=== PATIENT | male | born 1960 | race American Indian/Alaskan Native ===

== ENCOUNTER 2020-09-27 22:30 | Inpatient (IN) | payer MEDICAID ==
[2020-09-27] MEDS ORDERED: ACETAMINOPHEN 325 MG TAB ONE (23:52)
[2020-09-28] MEDS ORDERED: ACETAMINOPHEN 325 MG TAB PO ONE (00:03)
[2020-09-28] MEDS ORDERED: ASPIRIN 325 MG TAB PO ONE (00:03)
--- NOTE | 2020-09-28 00:31 | XRay Report ---
CHEST 2 VIEWS INDICATION / CLINICAL INFORMATION: CP, SOB h/o PE. Chest pain. FINDINGS: SUPPORT DEVICES: None. HEART / MEDIASTINUM: No significant abnormality. LUNGS / PLEURA: No significant pulmonary or pleural abnormality. No pneumothorax. ADDITIONAL FINDINGS: No significant additional findings. IMPRESSION: 1. No acute findings. Signer Name: Rufus Finnegan MD Signed: 09/28/2020 12:26 AM Workstation Name: [id number]
[2020-09-28 00:45] LABS: Basophils % (Auto) 0.2 % (0.0-1.8); Hematocrit 35.2 % (35.5-45.6); Hemoglobin 11.6 gm/dl (11.8-15.2); Lymphocytes # (Auto) 1.3 K/mm3 (1.2-5.4); Lymphocytes % (Auto) 7.8 % (13.4-35.0); Mean Corpuscular HGB Conc 33 % (32-34); Mean Corpuscular Volume 93 fl (84-94); Monocytes # (Auto) 2.3 K/mm3 (0.0-0.8); Monocytes % (Auto) 13.9 % (0.0-7.3); Platelet Count 206 K/mm3 (140-440); Red Blood Count 3.79 M/mm3 (3.65-5.03); Red Cell Distribution Width 14.9 % (13.2-15.2)
[2020-09-28 01:10] LABS: Alanine Aminotransferase 10 units/L (7-56); Albumin 3.9 g/dL (3.9-5); BUN/Creatinine Ratio 13; Blood Urea Nitrogen 14 mg/dL (9-20); Hemolysis Index 16
[2020-09-28 01:38] LABS: Chol/HDL Ratio 2.75 %; HDL Cholesterol 60 mg/dL (40-59); LDL Cholesterol,Direct 101 mg/dL (50-130)
[2020-09-28] MEDS ORDERED: MORPHINE 4 MG/1 ML INJ IV ONE (01:54)
[2020-09-28] MEDS ORDERED: NITROGLYCERIN 0.4 MG TAB SUBL SL PRN ×2 (01:54→05:12)
[2020-09-28] MEDS ORDERED: HEPARIN 10,000 UNITS/10 ML VIAL IV ONE (01:54)
[2020-09-28] MEDS ORDERED: SODIUM CHLORIDE 0.9% 500 ML 500 ML IV ONE (01:54)
[2020-09-28] MEDS ORDERED: HEPARIN 10,000 UNITS/10 ML VIAL IV PRN (01:54)
--- NOTE | 2020-09-28 01:57 | Emergency Department Report ---
ED Chest Pain HPI - General Chief Complaint: Chest Pain Stated Complaint: CHEST PAIN,RT ANKLE & KNEE PAIN PUI?: No Time Seen by Provider: 09/28/20 01:43 Source: patient, EMS ( EMS documentation not available at time of chart dictation ), RN notes reviewed Mode of arrival: Stretcher Limitations: No Limitations - History of Present Illness Initial Comments: The patient is a 60-year-old gentleman. He is not known to myself previously. He reports a history of heart disease, with multiple heart attacks, "blood clots", last diagnosed 6 years ago, off anticoagulation for 2 to 3 years, history of marijuana use, and polyarthritis and gout. The patient presents to the ER with multiple complaints today. His first complaint is acute chest pain. The pain is central. It does not radiate anywhere. It is constant. Does not have exacerbating relieving factors. The patient denies vomiting, diaphoresis and shortness of breath. He feels that the sensation of pressure today is very similar to his prior episode of pulmonary embolism a few years ago. He also complains of nontraumatic bilateral ankle pain, right greater than left, and polyarthritis. No fever. No loss of taste or smell. No abdominal pain. No hematemesis of bright red blood per rectum. He reports a distant history of gout. He reports using cannabis to help assuage his symptoms. He denies Covid symptomatology. He does not believe he is taking aspirin recently. He has not taken erectile dysfunction medication recently. In the past, he has been admitted to [place], and [facility]. MD Complaint: chest pain -: Gradual, hour(s) Pain Location: substernal, left chest Pain Radiation: none Severity: moderate Severity scale (0 -10): 10 Quality: aching, pressure Consistency: constant Improves With: other (Chest pain has no exacerbating or relieving factors. Extremity pain increases with palpation and range of motion. It decreases with rest. ) Other Symptoms: other (Polyarthritis). denies: fever, syncope, rash, acid taste in mouth, leg swelling, palpitations, burping Treatments Prior to Arrival: none Aspirin use within the Past 7 Days: (0) No - Related Data Allergies Allergy/AdvReac Type Severity Reaction Status Date / Time No Known Allergies Allergy Unverified 09/27/20 23:02 Heart Score - HEART Score History: Slightly suspicious EKG: Non-specific Age: 45-65 Risk factors: > 3 risk factors or hx of atherosclerotic disease Troponin: 1-3x normal limit HEART Score: 5 - EKG Read Time Time EKG Completed: 23:27 EKG Read Time: 23:31 - Critical Actions Critical Actions: 4-6 pts:12-16.6% risk of adverse cardiac event. Should be admitted ED Review of Systems ROS: Stated complaint: CHEST PAIN,RT ANKLE & KNEE PAIN Other details as noted in HPI Constitutional: malaise. denies: fever Eyes: denies: eye discharge ENT: denies: epistaxis Respiratory: denies: wheezing Cardiovascular: chest pain Gastrointestinal: abdominal pain. denies: hematemesis, melena, hematochezia Musculoskeletal: back pain, arthralgia, myalgia Neurological: denies: weakness ED Past Medical Hx - Past Medical History Hx Hypertension: Yes Hx Heart Attack/AMI: Yes Hx Renal Disease: Yes Additional medical history: gout - Surgical History Past Surgical History?: No - Social History Smoking Status: Never Smoker ED Physical Exam - General Limitations: Physical Limitation General appearance: alert, in no apparent distress - Head Head exam: Present: atraumatic, normocephalic - Eye Eye exam: Present: normal appearance, EOMI. Absent: nystagmus - ENT ENT exam: Present: normal exam, normal orophraynx, mucous membranes moist, normal external ear exam - Neck Neck exam: Present: normal inspection, full ROM. Absent: tenderness, meningismus - Respiratory Respiratory exam: Present: normal lung sounds bilaterally. Absent: respiratory distress, wheezes, rales, rhonchi, stridor, decreased breath sounds - Cardiovascular Cardiovascular Exam: Present: regular rate, normal rhythm, normal heart sounds. Absent: bradycardia, tachycardia, irregular rhythm, systolic murmur, diastolic murmur, rubs, gallop - GI/Abdominal GI/Abdominal exam: Present: soft. Absent: distended, tenderness, guarding, rebound, rigid, pulsatile mass - Rectal Rectal exam: Present: deferred - Extremities Exam Extremities exam: Present: tenderness (There is right ankle tenderness. There is right ankle warmth and redness. Range of motion is intact in the right ankle.), other (2+ pulses noted in the bilateral upper and lower extremities. There is no palpable cord. negative Homans sign. Muscular compartments are soft. The pelvis is stable.). Absent: pedal edema, calf tenderness - Back Exam Back exam: Present: normal inspection. Absent: tenderness, CVA tenderness (R), CVA tenderness (L), paraspinal tenderness, vertebral tenderness - Neurological Exam Neurological exam: Present: alert, other (No facial droop. Tongue midline. Extraocular movements intact bilaterally. Facial sensation intact to light touch in V1, V2, V3 distribution bilaterally. 5 and a 5 strength in 4 extremities. Sensation intact to light touch in 4 extremities.). Absent: motor sensory deficit - Psychiatric Psychiatric exam: Present: normal affect, normal mood - Skin Skin exam: Present: warm, dry, intact, normal color. Absent: rash ED Course Vital Signs 09/27/20 09/28/20 09/28/20 23:35 00:05 01:57 Temperature 101.4 F H 98.5 F Pulse Rate 76 Respiratory 18 18 Rate Blood Pressure 157/86 Blood Pressure [Left] O2 Sat by Pulse 98 Oximetry 09/28/20 01:59 Temperature Pulse Rate 61 Respiratory Rate Blood Pressure Blood Pressure 173/86 [Left] O2 Sat by Pulse 98 Oximetry - Reevaluation(s) Reevaluation #1: 09/28/20 02:55 Differential diagnosis, including but not limited to: Gouty arthritis, polyarthritis, GERD, gastritis, hiatal hernia, pneumonia, acute coronary syndrome, pulmonary embolism, pericarditis, myocarditis Assessment and plan: 60-year-old gentleman with chest pain and polyarthritis. In terms of his chest pain, his EKG is nonspecific, he is moderate risk for major adverse cardiac event as per heart score, troponin elevated, CT scan of the chest ordered and pending. He indicates no contraindications in terms of systemic anticoagulation. Aspirin, nitroglycerin, morphine ordered, as well as unfractionated heparin. Admit for presumed NSTEMI. Patient amenable to this plan of care. In terms of his arthritic pain, the majority of his pain appears to be in his right ankle. He does have range of motion, and there is redness and warmth. He reports a history of gout. I favor gout clinically over septic joint, as he d enies intravenous drug use, and does have some range of motion over the right ankle. Given that we are starting him on systemic anticoagulation, we will withhold steroids at this time. We will treat him with morphine for his pain. He has also defervesced with Tylenol/acetaminophen. Hospital physician, Dr. Fofana to admit to [facility] 09/28/20 04:18 Medical records from [place] reviewed patient has a documented history of gout.. He has been admitted to [place] for gout. His CT scan of the chest is negative for acute findings. Patient has received antibiotics in the past empirically for foot cellulitis versus gout. He does have some dorsal foot erythema and redness. I suspect that his fever and leukocytosis are likely secondary to gouty flare. However we will cover empirically with antibiotics, and obtain cultures and lactic acid. 09/28/20 05:05 X-ray of the right foot, right ankle negative for fracture dislocation. Gouty changes are suggested. CARL score - Carl Score Age > 65: (0) No Aspirin use within the Past 7 Days: (0) No 3 or more CAD Risk Factors: (1) Yes 2 or more Angina events in past 24 hrs: (0) No Known CAD with more than 50% Stenosis: (0) No Elevated Cardiac Markers: (1) Yes ST Deviation Greater than 0.5mm: (0) No CARL Score: 2 ED Medical Decision Making - Lab Data Result diagrams: 09/28/20 00:34 09/28/20 00:34 Vital Signs 09/27/20 09/28/20 09/28/20 23:35 00:05 01:57 Temperature 101.4 F H 98.5 F Pulse Rate 76 Respiratory 18 18 Rate Blood Pressure 157/86 Blood Pressure [Left] O2 Sat by Pulse 98 Oximetry 09/28/20 01:59 Temperature Pulse Rate 61 Respiratory Rate Blood Pressure Blood Pressure 173/86 [Left] O2 Sat by Pulse 98 Oximetry Lab Results 09/28/20 09/28/20 09/28/20 Range/Units 00:34 00:34 02:00 WBC 16.2 H (4.5-11.0) K/mm3 RBC 3.79 (3.65-5.03) M/mm3 Hgb 11.6 L (11.8-15.2) gm/dl Hct 35.2 L (35.5-45.6) % MCV 93 (84-94) fl MCH 31 (28-32) pg MCHC 33 (32-34) % RDW 14.9 (13.2-15.2) % Plt Count 206 (140-440) K/mm3 Lymph % (Auto) 7.8 L (13.4-35.0) % [place] % (Auto) 13.9 H (0.0-7.3) % Eos % (Auto) 0.0 (0.0-4.3) % Baso % (Auto) 0.2 (0.0-1.8) % Lymph # (Auto) 1.3 (1.2-5.4) K/mm3 [place] # (Auto) 2.3 H (0.0-0.8) K/mm3 Eos # (Auto) 0.0 (0.0-0.4) K/mm3 Baso # (Auto) 0.0 (0.0-0.1) K/mm3 Seg Neutrophils % 78.1 H (40.0-70.0) % Seg Neutrophils # 12.6 H (1.8-7.7) K/mm3 D-Dimer 1920 H (0-234) ng/mlDDU Sodium 132 L (137-145) mmol/L Potassium 4.1 (3.6-5.0) mmol/L Chloride 96.7 L (98-107) mmol/L Carbon Dioxide 21 L (22-30) mmol/L Anion Gap 18 mmol/L BUN 14 (9-20) mg/dL Creatinine 1.1 (0.8-1.3) mg/dL Estimated GFR > 60 ml/min BUN/Creatinine Ratio 13 % Glucose 129 H (75-100) mg/dL Calcium 9.0 (8.4-10.2) mg/dL Total Bilirubin 1.10 (0.1-1.2) mg/dL AST 14 (5-40) units/L ALT 10 (7-56) units/L Alkaline Phosphatase 89 (35-129) units/L Troponin T 0.036 H (0.00-0.029) ng/mL Total Protein 7.6 (6.3-8.2) g/dL Albumin 3.9 (3.9-5) g/dL Albumin/Globulin Ratio 1.1 % Triglycerides 79 (2-149) mg/dL Cholesterol 165 (50-199) mg/dL LDL Cholesterol Direct 101 (50-130) mg/dL HDL Cholesterol 60 H (40-59) mg/dL Cholesterol/HDL Ratio 2.75 % - EKG Data -: EKG Interpreted by Ok EKG shows normal: sinus rhythm Rate: normal - EKG Data 09/28/20 02:54 EKG #1 as interpreted at 11: 31 PM Sinus rhythm, 67 bpm. Normal axis, QTC prolonged, left ventricular hypertrophy, interventricular conduction delay. This is an abnormal EKG. This is not a STEMI. There is no prior for comparison. EKG #2, shows a sinus rhythm, 62 bpm. Normal axis, QTC 478 ms. Interventricular conduction delay noted. Not a STEMI. Unchanged from prior. - Radiology Data Radiology results: pending, report reviewed, image reviewed [facility] [address] [place] [address] XRay Report Signed Patient: FERMIN PAUL MR#: [id number] : 1960 Acct:[id number] Age/Sex: 60 / M ADM Date: 09/27/20 Loc: ED Attending Dr: Ordering Physician: JAYSON TOVAR MD Date of Service: 09/28/20 Procedure(s): XR chest 1V ap Accession Number(s): [id number] cc: ED MD GUY Fluoro Time In Minutes: CHEST 2 VIEWS INDICATION / CLINICAL INFORMATION: CP, SOB h/o PE. Chest pain. FINDINGS: SUPPORT DEVICES: None. HEART / MEDIASTINUM: No significant abnormality. LUNGS / PLEURA: No significant pulmonary or pleural abnormality. No pneumothorax. ADDITIONAL FINDINGS: No significant additional findings. IMPRESSION: 1. No acute findings. Signer Name: Rufus Finnegan MD Signed: 09/28/2020 12:26 AM Workstation Name: [id number] Transcribed By: BC Dictated By: Rufus Finnegan MD Electronically Authenticated By: Rufus Finnegan MD Signed Date/Time: 09/28/2025 DD/ Critical Care Time: Yes Critical care time in (mins) excluding proc time.: 35 Critical care attestation.: If time is entered above; I have spent that time in minutes in the direct care of this critically ill patient, excluding procedure time. ED Disposition Clinical Impression: Acute chest pain, Right ankle pain, Polyarthritis, Marijuana use Disposition: OP ADMIT IP TO THIS HOSP Is pt being admited?: Yes Does the pt Need Aspirin: No Condition: Serious
[2020-09-28] MEDS ORDERED: HEPARIN/ 0.45% NACL DRIP 25,000 UNIT/500 ML BAG IV SCH (02:00)
[2020-09-28 02:22] LABS: INR 1.13 (0.87-1.13)
[2020-09-28 02:23] LABS: Partial Thromboplastin Time 29.4 Sec. (24.2-36.6)
--- NOTE | 2020-09-28 03:31 | Cat Scan Report ---
CTA CHEST WITH IV CONTRAST INDICATION: Patient complains of acute chest pain, Hx of previous PE. Dyspnea TECHNIQUE: Axial CT images were obtained through the chest after injection of 100 mL IV contrast. 3 plane MIP re constructions were produced. All CT scans at this location are performed using CT dose reduction for ALARA by means of automated exposure control. COMPARISON: None available. FINDINGS: PULMONARY ARTERIES: No pulmonary emboli. AORTA AND ARTERIES: No acute abnormality. MEDIASTINUM: Left ventricular hypertrophy. LUNGS: 8 mm nodular density within the left lower lobe. ADDITIONAL FINDINGS: None. UPPER ABDOMEN: No acute findings. BONES: No significant osseous abnormality. IMPRESSION: 1. No CT evidence for pulmonary embolism. 2. No acute findings. 3. Focal 8 mm nodular density within the left lower lobe. INCIDENTAL PULMONARY NODULE RECOMMENDATIONS Solid Nodule size 6-8 mm -- Single - Low Risk Patient: CT at 6-12 months, then consider CT at 18-24 months - High Risk Patient: CT at 6-12 months, then CT at 18-24 months Note These recommendations do not apply to lung cancer screening, patients with immunosuppression, o r patients with known primary cancer. Note Newly detected indeterminate nodule in persons 35 years of age or older. Persons under the age of 35 should not receive follow-up unless there is a known primary cancer. Low Risk Patient -- minimal or absent history of smoking and of other known risk factors. High Risk Patient -- history of smoking or of other known risk factors. Nodule dimensions are average of long and short axes, rounded to the nearest millimeter. Based on 2017 Fleischner Society Guidelines found in Radiology 2017 284:228-243. https://doi.org/10.1 148/radiol.[email or web address] Signer Name: Rufus Finnegan MD Signed: 09/28/2020 3:26 AM Workstation Name: [id number]
[2020-09-28] MEDS ORDERED: HYDROmorphone 1 MG/1 ML INJ IV ONE (03:59)
[2020-09-28] MEDS ORDERED: HYDROmorphone 2 MG/1 ML INJ IV ONE (04:09)
--- NOTE | 2020-09-28 04:54 | XRay Report ---
Right ankle 3 views INDICATION: Right ankle pain IMPRESSION: Diffuse osteopenia. No acute findings Right foot 3 views INDICATION: Right foot pain IMPRESSION: No acute fracture or subluxation. Mild gouty change identified involving the great toe KATHI Thompson Signer Name: Rufus Finnegan MD Signed: 09/28/2020 4:50 AM Workstation Name: [id number]
[2020-09-28] MEDS ORDERED: traMADol 50 MG TAB PO PRN (05:12)
[2020-09-28] MEDS ORDERED: ACETAMINOPHEN 325 MG TAB PO PRN (05:12)
[2020-09-28] MEDS ORDERED: SODIUM CHLORIDE 0.9% 1000 ML 1,000 ML IV SCH (05:15)
[2020-09-28] MEDS ORDERED: hydrALAZINE 20 MG/1 ML INJ IV PRN (05:16)
[2020-09-28] MEDS ORDERED: ceFAZolin/NS 1 GM/50 ML 1 GM/50 ML BAG IV ONE (05:17)
--- NOTE | 2020-09-28 05:22 | History and Physical Report ---
History of Present Illness Date of examination: 09/28/20 Date of admission: 09/28/20 02:01 Chief complaint: Chest pain, right ankle and knee pain History of present illness: 60-year male with history of heart disease, with multiple heart attacks, "blood clots", last diagnosed 6 years ago, off anticoagulation for 2 to 3 years, history of marijuana use, and polyarthritis and gout was brought to the emergency room because of chest pain which is central location constant with no radiation.Does not have exacerbating relieving factors. The patient denies vomiting, diaphoresis and shortness of breath. He feels that the sensation of pressure today is very similar to his prior episode of pulmonary embolism a few years ago. Patient also complains of nontraumatic bilateral ankle pain, right greater than left, and polyarthritis. No fever. No loss of taste or smell. No abdominal pain. No hematemesis of bright red blood per rectum. He reports a distant his tory of gout. He reports using cannabis to help assuage his symptoms. In the emergency room patient troponin is 0.036. CT scan of the chest shows no CT evidence of PE no acute finding focal 8 mm nodular density within the left lower lobe Past History Past Medical History: acute NM, hypertension, renal failure, other (Gout) Medications and Allergies Allergies Allergy/AdvReac Type Severity Reaction Status Date / Time No Known Allergies Allergy Unverified 09/27/20 23:02 Active Meds: Active Medications Heparin Sodium (Porcine) (Heparin 10,000 Units/10 Ml Vial) 2,700 unit 40 unit/kg (2700 unit) IV Q6H PRN PRN Reason: Anti-Xa Assay < 0.1 units/ml Heparin Sodium/Sodium Chloride (Heparin/ 0.45% Nacl-25,000 Unit/500 Ml) 25,000 unit in 500 mls @ 20 mls/hr IV TITRATE AYALA; Protocol Last Admin: 09/28/20 02:52 Dose: 1,000 units/hr, 20 mls/hr Documented by: Cefazolin Sodium (Ancef/Ns 1 Gm/50 Ml) 1 gm in 50 mls @ 100 mls/hr IV ONCE ONE; Protocol Stop: 09/28/20 05:46 Nitroglycerin (Nitroglycerin 0.4 Mg Tab Subl) 0.4 mg SL .Q5MIN PRN PRN Reason: Chest Pain Review of Systems Cardiovascular: chest pain Gastrointestinal: abdominal pain Genitourinary Male: other (Myalgia) Musculoskeletal: low back pain, other (Myalgia arthralgia) Exam - Constitutional Vitals: Temp Pulse Resp BP Pulse Ox 98.5 F 61 18 173/86 98 09/28/20 01:57 09/28/20 01:59 09/28/20 00:05 09/28/20 01:59 09/28/20 01:59 General appearance: Present: no acute distress, well-nourished - EENT Eyes: Present: PERRL ENT: hearing intact, clear oral mucosa - Neck Neck: Present: supple, normal ROM - Respiratory Respiratory effort: normal Respiratory: bilateral: diminished - Cardiovascular Heart Sounds: Present: S1 & S2. Absent: rub, click - Extremities Extremities: pulses symmetrical, No edema Extremity abnormal: other (Right ankle tenderness there is right ankle warmth and tenderness and redness) Peripheral Pulses: within normal limits - Abdominal General gastrointestinal: Present: soft, non-tender, non-distended, normal bowel sounds Male genitourinary: Present: normal - Integumentary Integumentary: Present: clear, warm, dry - Musculoskeletal Musculoskeletal: gait normal, strength equal bilaterally - Psychiatric Psychiatric: appropriate mood/affect, intact judgment & insight - Neurologic Neurologic: CNII-XII intact, moves all extremities HEART Score - HEART Score EKG: Non-specific Age: 45-65 Risk factors: > 3 risk factors or hx of atherosclerotic disease Troponin: Troponin T 0.033 ng/mL (0.00-0.029) H 09/28/20 03:05 Troponin: 1-3x normal limit - Critical Actions Critical Actions: 4-6 pts:12-16.6% risk of adverse cardiac event. Should be admitted Results - Labs CBC & Chem 7: 09/28/20 00:34 09/28/20 00:34 Labs: Laboratory Last Values WBC 16.2 K/mm3 (4.5-11.0) H 09/28/20 00:34 RBC 3.79 M/mm3 (3.65-5.03) 09/28/20 00:34 Hgb 11.6 gm/dl (11.8-15.2) L 09/28/20 00:34 Hct 35.2 % (35.5-45.6) L 09/28/20 00:34 MCV 93 fl (84-94) 09/28/20 00:34 MCH 31 pg (28-32) 09/28/20 00:34 MCHC 33 % (32-34) 09/28/20 00:34 RDW 14.9 % (13.2-15.2) 09/28/20 00:34 Plt Count 206 K/mm3 (140-440) 09/28/20 00:34 Lymph % (Auto) 7.8 % (13.4-35.0) L 09/28/20 00:34 [place] % (Auto) 13.9 % (0.0-7.3) H 09/28/20 00:34 Eos % (Auto) 0.0 % (0.0-4.3) 09/28/20 00:34 Baso % (Auto) 0.2 % (0.0-1.8) 09/28/20 00:34 Lymph # (Auto) 1.3 K/mm3 (1.2-5.4) 09/28/20 00:34 [place] # (Auto) 2.3 K/mm3 (0.0-0.8) H 09/28/20 00:34 Eos # (Auto) 0.0 K/mm3 (0.0-0.4) 09/28/20 00:34 Baso # (Auto) 0.0 K/mm3 (0.0-0.1) 09/28/20 00:34 Seg Neutrophils % 78.1 % (40.0-70.0) H 09/28/20 00:34 Seg Neutrophils # 12.6 K/mm3 (1.8-7.7) H 09/28/20 00:34 PT 15.1 Sec. (12.2-14.9) H 09/28/20 02:01 INR 1.13 (0.87-1.13) 09/28/20 02:01 APTT 29.4 Sec. (24.2-36.6) 09/28/20 02:01 D-Dimer 1920 ng/mlDDU (0-234) H 09/28/20 02:00 Sodium 132 mmol/L (137-145) L 09/28/20 00:34 Potassium 4.1 mmol/L (3.6-5.0) 09/28/20 00:34 Chloride 96.7 mmol/L (98-107) L 09/28/20 00:34 Carbon Dioxide 21 mmol/L (22-30) L 09/28/20 00:34 Anion Gap 18 mmol/L 09/28/20 00:34 BUN 14 mg/dL (9-20) 09/28/20 00:34 Creatinine 1.1 mg/dL (0.8-1.3) 09/28/20 00:34 Estimated GFR > 60 ml/min 09/28/20 00:34 BUN/Creatinine Ratio 13 % 09/28/20 00:34 Glucose 129 mg/dL (75-100) H 09/28/20 00:34 Calcium 9.0 mg/dL (8.4-10.2) 09/28/20 00:34 Magnesium 1.90 mg/dL (1.7-2.3) 09/28/20 02:01 Total Bilirubin 1.10 mg/dL (0.1-1.2) 09/28/20 00:34 AST 14 units/L (5-40) 09/28/20 00:34 ALT 10 units/L (7-56) 09/28/20 00:34 Alkaline Phosphatase 89 units/L (35-129) 09/28/20 00:34 Total Creatine Kinase 100 units/L (55-170) 09/28/20 02:01 Troponin T 0.033 ng/mL (0.00-0.029) H 09/28/20 03:05 Total Protein 7.6 g/dL (6.3-8.2) 09/28/20 00:34 Albumin 3.9 g/dL (3.9-5) 09/28/20 00:34 Albumin/Globulin Ratio 1.1 % 09/28/20 00:34 Triglycerides 79 mg/dL (2-149) 09/28/20 00:34 Cholesterol 165 mg/dL (50-199) 09/28/20 00:34 LDL Cholesterol Direct 101 mg/dL (50-130) 09/28/20 00:34 HDL Cholesterol 60 mg/dL (40-59) H 09/28/20 00:34 Cholesterol/HDL Ratio 2.75 % 09/28/20 00:34 - Imaging and Cardiology CT scan - chest: report reviewed Assessment and Plan VTE prophylaxis?: Chemical Plan of care discussed with patient/family: Yes - Patient Problems (1) Acute coronary syndrome Current Visit: Yes Status: Acute Plan to address problem: Admit the patient to the medical telemetry. Aspirin 325 mg p.o. daily. Lipitor 40 mg p.o. daily nitroglycerin. As needed. Heparin drip as per protocol. We do the serial cardiac enzyme. We also do echocardiogram and consult cardiology for evaluation and treatment (2) Marijuana use Current Visit: Yes Status: Acute (3) Polyarthritis Current Visit: Yes Status: Acute Plan to address problem: Tylenol 650 mg p.o. every 6 hours as needed. Morphine 2 mg IV every 4 hours as needed. We will monitor the patient closely (4) Right ankle pain Current Visit: Yes Status: Acute Plan to address problem: Tylenol 650 mg p.o. every 6 hours as needed. Morphine 2 mg IV every 4 hours as needed. We will monitor the patient closely (5) DVT prophylaxis Current Visit: Yes Status: Acute Plan to address problem: Heparin drip as per protocol for the DVT prophylaxis. Protonix 40 mg p.o. daily for GI prophylaxis. Patient is a full code
[2020-09-28] MEDS ORDERED: HEPARIN 5,000 UNIT/1 ML VIAL SUB-Q SCH (06:00)
[2020-09-28 06:26] LABS: Basophils % (Auto) 0.2 % (0.0-1.8); Hematocrit 32.2 % (35.5-45.6); Hemoglobin 10.5 gm/dl (11.8-15.2); Lymphocytes # (Auto) 1.6 K/mm3 (1.2-5.4); Lymphocytes % (Auto) 10.8 % (13.4-35.0); Mean Corpuscular HGB Conc 33 % (32-34); Mean Corpuscular Volume 93 fl (84-94); Monocytes # (Auto) 1.7 K/mm3 (0.0-0.8); Monocytes % (Auto) 11.5 % (0.0-7.3); Platelet Count 184 K/mm3 (140-440); Red Blood Count 3.48 M/mm3 (3.65-5.03); Red Cell Distribution Width 15.1 % (13.2-15.2)
[2020-09-28 06:44] LABS: BUN/Creatinine Ratio 14; Blood Urea Nitrogen 15 mg/dL (9-20); Calcium 8.7 mg/dL (8.4-10.2); Hemolysis Index 10
[2020-09-28] MEDS ORDERED: LIDOCAINE-MPF (1%) 10 MG/1 ML VIAL 5 ML INFILTRATI ONE (09:00)
--- NOTE | 2020-09-28 09:59 | Electrocardiograph Report ---
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
--- NOTE | 2020-09-28 10:03 | Electrocardiograph Report ---
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
[2020-09-28] MEDS: cefTRIAXone/NS 1 GM/50 ML 1 GM/50 ML BAG IV SCH ×2 (10:23→11:15)
--- NOTE | 2020-09-28 11:02 | Consultation ---
History of Present Illness Consult date: 09/28/20 Consult reason: chest pain History of present illness: This is a 60-year old M who was brought in the atypical chest pain, right knee and ankle pain. On assessment the patient's right knee and right ankle is edematous, warm, and painful to touch. Findings on the x-ray of the foot is consistent with gout flare. Chest x-ray is negative. CTA scan of the scan revealed an incidental pulmonary nodule within the left lower lung. No evidence of pulmonary embolism. Laboratory shows mild elevation of troponin measurements and elevated WBC. An ECG is sinus rhythm with LVH and incomplete LBBB. Past History Past Medical History: arthritis, pulmonary embolism, other (Gout) Social history: smoking Medications and Allergies Allergies Allergy/AdvReac Type Severity Reaction Status Date / Time No Known Allergies Allergy Unverified 09/27/20 23:02 Active Meds: Active Medications Acetaminophen (Acetaminophen 325 Mg Tab) 650 mg PO Q6H PRN PRN Reason: Pain, Mild (1-3) Aspirin (Aspirin Ec 325 Mg Tab) 325 mg PO QDAY AYALA Atorvastatin Calcium (Atorvastatin 40 Mg Tab) 40 mg PO QHS AYALA Heparin Sodium (Porcine) (Heparin 10,000 Units/10 Ml Vial) 2,700 unit 40 unit/kg (2700 unit) IV Q6H PRN PRN Reason: Anti-Xa Assay < 0.1 units/ml Hydralazine HCl (Hydralazine 20 Mg/1 Ml Inj) 10 mg IV Q6H PRN PRN Reason: htn Heparin Sodium/Sodium Chloride (Heparin/ 0.45% Nacl-25,000 Unit/500 Ml) 25,000 unit in 500 mls @ 20 mls/hr IV TITRATE AYALA; Protocol Last Admin: 09/28/20 02:52 Dose: 1,000 units/hr, 20 mls/hr Documented by: Sodium Chloride (Nacl 0.9% 1000 Ml) 1,000 mls @ 100 mls/hr IV DIRECT AYALA Ceftriaxone Sodium (Rocephin/Ns 1 Gm/50 Ml) 1 gm in 50 mls @ 100 mls/hr IV Q24H AYALA; Protocol Last Admin: 09/28/20 10:23 Dose: Not Given Documented by: Morphine Sulfate (Morphine 2 Mg/1 Ml Inj) 2 mg IV Q5MIN PRN PRN Reason: Chest Pain Nitroglycerin (Nitroglycerin 0.4 Mg Tab Subl) 0.4 mg SL .Q5MIN PRN PRN Reason: Chest Pain Nitroglycerin (Nitroglycerin 0.4 Mg Tab Subl) 0.4 mg SL Q5M PRN PRN Reason: Chest Pain Sodium Chloride (Sodium Chloride 0.9% 10 Ml Flush Syringe) 10 ml IV PRN PRN PRN Reason: LINE FLUSH Tramadol HCl (Tramadol 50 Mg Tab) 50 mg PO Q6H PRN PRN Reason: Pain, Moderate (4-6) Review of Systems Cardiovascular: chest pain, edema, no palpitations, no shortness of breath Physical Examination Vital Signs Temp Pulse Resp BP Pulse Ox 101.4 F H 76 18 157/86 98 09/27/20 23:35 09/27/20 23:35 09/27/20 23:35 09/27/20 23:35 09/27/20 23:35 General appearance: no acute distress HEENT: Positive: PERRL Neck: Positive: trachea midline Cardiac: Positive: Reg Rate and Rhythm Lungs: Positive: Normal Breath Sounds Neuro: Positive: Grossly Intact Musculoskeletal: Pain in Joint (right knee and ankle) Extremities: Present: edema (right ankle) Results 09/28/20 05:53 09/28/20 05:53 Cardiac Enzymes 09/28/20 Range/Units 00:34 AST 14 (5-40) units/L Coagulation 09/28/20 Range/Units 02:01 PT 15.1 H (12.2-14.9) Sec. INR 1.13 (0.87-1.13) APTT 29.4 (24.2-36.6) Sec. Lipids 09/28/20 Range/Units 00:34 Triglycerides 79 (2-149) mg/dL Cholesterol 165 (50-199) mg/dL HDL Cholesterol 60 H (40-59) mg/dL Cholesterol/HDL Ratio 2.75 % CBC 09/28/20 09/28/20 Range/Units 00:34 05:53 WBC 16.2 H 15.0 H (4.5-11.0) K/mm3 RBC 3.79 3.48 L (3.65-5.03) M/mm3 Hgb 11.6 L 10.5 L (11.8-15.2) gm/dl Hct 35.2 L 32.2 L (35.5-45.6) % Plt Count 206 184 (140-440) K/mm3 Lymph # (Auto) 1.3 1.6 (1.2-5.4) K/mm3 [place] # (Auto) 2.3 H 1.7 H (0.0-0.8) K/mm3 Eos # (Auto) 0.0 0.0 (0.0-0.4) K/mm3 Baso # (Auto) 0.0 0.0 (0.0-0.1) K/mm3 Comprehensive Metabolic Panel 09/28/20 09/28/20 Range/Units 00:34 05:53 Sodium 132 L 135 L (137-145) mmol/L Potassium 4.1 3.9 (3.6-5.0) mmol/L Chloride 96.7 L 99.5 (98-107) mmol/L Carbon Dioxide 21 L 23 (22-30) mmol/L BUN 14 15 (9-20) mg/dL Creatinine 1.1 1.1 (0.8-1.3) mg/dL Glucose 129 H 176 H (75-100) mg/dL Calcium 9.0 8.7 (8.4-10.2) mg/dL AST 14 (5-40) units/L ALT 10 (7-56) units/L Alkaline Phosphatase 89 (35-129) units/L Total Protein 7.6 (6.3-8.2) g/dL Albumin 3.9 (3.9-5) g/dL Assessment and Plan Chest pain, atypical Mild elevated troponin Gout flare Echocardiogram will be done for LVEF assessment. Management of gout flare as per primary team. Further cardiac evaluation depends on clinical course.
--- NOTE | 2020-09-28 12:11 | Progress Note ---
Assessment and Plan Assessment and plan: 60-year-old -Thai male who presents with acute chest pain and possible gouty flare Acute coronary syndrome NSTEMI type II Rule out ACS Troponins elevated but downtrending EKG noted with incomplete left bundle branch block Cardiology consulted Echocardiogram pending Fever of unknown origin, rule out sepsis Possibly secondary to gout Blood cultures pending Patient on IV antibiotics Urine culture and urinalysis pending Acute gout flare X-rays of lower extremities noted We will start colchicine Patient to be discharged on allopurinol Hypertension Patient's blood pressure is better controlled Marijuana use Stressed abstinence Disposition: Pending echocardiogram, rule out sepsis, treat gouty flare. History Interval history: 09/28/2020: Patient seen and examined, complaining of lower extremity pain, states that he is having a gouty flare. Hospitalist Physical - Constitutional Vitals: Temp Pulse Resp BP Pulse Ox 98.5 F 65 16 108/50 99 09/28/20 01:57 09/28/20 08:30 09/28/20 08:30 09/28/20 08:30 09/28/20 06:45 General appearance: Present: no acute distress HEART Score - HEART Score EKG: Non-specific Age: 45-65 Risk factors: > 3 risk factors or hx of atherosclerotic disease Troponin: Troponin T 0.029 ng/mL (0.00-0.029) 09/28/20 05:40 Troponin: 1-3x normal limit - Critical Actions Critical Actions: 4-6 pts:12-16.6% risk of adverse cardiac event. Should be admitted Results - Labs CBC & Chem 7: 09/28/20 05:53 09/28/20 05:53 Labs: Laboratory Last Values WBC 15.0 K/mm3 (4.5-11.0) H 09/28/20 05:53 RBC 3.48 M/mm3 (3.65-5.03) L 09/28/20 05:53 Hgb 10.5 gm/dl (11.8-15.2) L 09/28/20 05:53 Hct 32.2 % (35.5-45.6) L 09/28/20 05:53 MCV 93 fl (84-94) 09/28/20 05:53 MCH 30 pg (28-32) 09/28/20 05:53 MCHC 33 % (32-34) 09/28/20 05:53 RDW 15.1 % (13.2-15.2) 09/28/20 05:53 Plt Count 184 K/mm3 (140-440) 09/28/20 05:53 Lymph % (Auto) 10.8 % (13.4-35.0) L 09/28/20 05:53 [place] % (Auto) 11.5 % (0.0-7.3) H 09/28/20 05:53 Eos % (Auto) 0.0 % (0.0-4.3) 09/28/20 05:53 Baso % (Auto) 0.2 % (0.0-1.8) 09/28/20 05:53 Lymph # (Auto) 1.6 K/mm3 (1.2-5.4) 09/28/20 05:53 [place] # (Auto) 1.7 K/mm3 (0.0-0.8) H 09/28/20 05:53 Eos # (Auto) 0.0 K/mm3 (0.0-0.4) 09/28/20 05:53 Baso # (Auto) 0.0 K/mm3 (0.0-0.1) 09/28/20 05:53 Seg Neutrophils % 77.5 % (40.0-70.0) H 09/28/20 05:53 Seg Neutrophils # 11.7 K/mm3 (1.8-7.7) H 09/28/20 05:53 PT 15.1 Sec. (12.2-14.9) H 09/28/20 02:01 INR 1.13 (0.87-1.13) 09/28/20 02:01 APTT 29.4 Sec. (24.2-36.6) 09/28/20 02:01 D-Dimer 1920 ng/mlDDU (0-234) H 09/28/20 02:00 Sodium 135 mmol/L (137-145) L 09/28/20 05:53 Potassium 3.9 mmol/L (3.6-5.0) 09/28/20 05:53 Chloride 99.5 mmol/L (98-107) 09/28/20 05:53 Carbon Dioxide 23 mmol/L (22-30) 09/28/20 05:53 Anion Gap 16 mmol/L 09/28/20 05:53 BUN 15 mg/dL (9-20) 09/28/20 05:53 Creatinine 1.1 mg/dL (0.8-1.3) 09/28/20 05:53 Estimated GFR > 60 ml/min 09/28/20 05:53 BUN/Creatinine Ratio 14 % 09/28/20 05:53 Glucose 176 mg/dL (75-100) H 09/28/20 05:53 Lactic Acid 1.20 mmol/L (0.7-2.0) 09/28/20 04:43 Calcium 8.7 mg/dL (8.4-10.2) 09/28/20 05:53 Magnesium 1.90 mg/dL (1.7-2.3) 09/28/20 02:01 Total Bilirubin 1.10 mg/dL (0.1-1.2) 09/28/20 00:34 AST 14 units/L (5-40) 09/28/20 00:34 ALT 10 units/L (7-56) 09/28/20 00:34 Alkaline Phosphatase 89 units/L (35-129) 09/28/20 00:34 Total Creatine Kinase 100 units/L (55-170) 09/28/20 02:01 Troponin T 0.029 ng/mL (0.00-0.029) 09/28/20 05:40 Total Protein 7.6 g/dL (6.3-8.2) 09/28/20 00:34 Albumin 3.9 g/dL (3.9-5) 09/28/20 00:34 Albumin/Globulin Ratio 1.1 % 09/28/20 00:34 Triglycerides 79 mg/dL (2-149) 09/28/20 00:34 Cholesterol 165 mg/dL (50-199) 09/28/20 00:34 LDL Cholesterol Direct 101 mg/dL (50-130) 09/28/20 00:34 HDL Cholesterol 60 mg/dL (40-59) H 09/28/20 00:34 Cholesterol/HDL Ratio 2.75 % 09/28/20 00:34 Microbiology: Microbiology 09/28/20 04:43 Peripheral/Venous Blood Culture - Preliminary Culture in Progress 09/28/20 05:40 Peripheral/Venous Blood Culture - Preliminary Culture in Progress Active Medications - Current Medications Current Medications: Generic Name Dose Route Start Last Admin Trade Name Freq PRN Reason Stop Dose Admin Acetaminophen 650 mg 09/28/20 05:12 Acetaminophen 325 Mg Tab PO Q6H PRN Pain, Mild (1-3) Aspirin 325 mg 09/29/20 10:00 Aspirin Ec 325 Mg Tab PO QDAY [facility] Atorvastatin Calcium 40 mg 09/28/20 22:00 Atorvastatin 40 Mg Tab PO QHS [facility] Heparin Sodium (Porcine) 5,000 unit 09/28/20 22:00 Heparin 5,000 Unit/1 Ml Vial SUB-Q Q12HR AYALA Hydralazine HCl 10 mg 09/28/20 05:16 Hydralazine 20 Mg/1 Ml Inj IV Q6H PRN htn Sodium Chloride 1,000 mls @ 100 mls/hr 09/28/20 05:15 09/28/20 11:16 Nacl 0.9% 1000 Ml IV 100 mls/hr DIRECT AYALA Administration Ceftriaxone Sodium 1 gm in 50 mls @ 100 mls/hr 09/28/20 09:00 09/28/20 11:15 Rocephin/Ns 1 Gm/50 Ml IV 100 mls/hr Q24H AYALA Administration Protocol Morphine Sulfate 2 mg 09/28/20 05:12 Morphine 2 Mg/1 Ml Inj IV Q5MIN PRN Chest Pain Nitroglycerin 0.4 mg 09/28/20 01:54 Nitroglycerin 0.4 Mg Tab Subl SL .Q5MIN PRN Chest Pain Nitroglycerin 0.4 mg 09/28/20 05:12 Nitroglycerin 0.4 Mg Tab Subl SL Q5M PRN Chest Pain Sodium Chloride 10 ml 09/28/20 05:12 Sodium Chloride 0.9% 10 Ml Flush Syringe IV PRN PRN LINE FLUSH Tramadol HCl 50 mg 09/28/20 05:12 Tramadol 50 Mg Tab PO Q6H PRN Pain, Moderate (4-6)
[2020-09-28] MEDS ORDERED: COLCHICINE 0.6 MG TAB PO SCH (13:00)
[2020-09-28] MEDS ORDERED: COLCHICINE 0.6 MG TAB PO ONE (14:00)
[2020-09-28] MEDS: MORPHINE 2 MG/1 ML INJ IV PRN ×2 (17:19→21:08)
[2020-09-28] MEDS: HEPARIN 5,000 UNIT/1 ML VIAL SUB-Q SCH (21:08)
[2020-09-29] MEDS: MORPHINE 2 MG/1 ML INJ IV PRN (03:59)
--- NOTE | 2020-09-29 09:13 | Electrocardiograph Report ---
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
[2020-09-29] MEDS ORDERED: REGADENOSON 0.4 MG/5 ML INJ IV ONE (10:33)
[2020-09-29] MEDS: COLCHICINE 0.6 MG TAB PO SCH (12:11)
[2020-09-29] MEDS: HEPARIN 5,000 UNIT/1 ML VIAL SUB-Q SCH ×2 (12:12→22:04)
[2020-09-29] MEDS: ASPIRIN EC 325 MG TAB PO SCH (12:12)
[2020-09-29] MEDS: cefTRIAXone/NS 1 GM/50 ML 1 GM/50 ML BAG IV SCH (12:14)
--- NOTE | 2020-09-29 12:41 | Progress Note ---
Assessment and Plan - Patient Problems (1) Atypical chest pain Current Visit: Yes Status: Acute Plan to address problem: Patient's primary presenting complaint is right knee and ankle pain. His right knee is markedly indurated, warm to touch, consistent with acute arthritis. Will defer to internal medicine for management of acute gouty arthritis. Symptom complex on presentation includes atypical chest pain. He has completed a Lexiscan thallium stress test for cardiac chest pain assessment, results are pending. Subjective Date of service: 09/29/20 Interval history: Patient is comfortable, no chest pain, no shortness of breath. He was ordered for a Lexiscan thallium stress test today, he has completed the test and results are pending. Objective Vital Signs Temp Pulse Pulse Resp BP Pulse Ox 09/29/20 08:22 68 169/85 09/29/20 08:19 169/85 09/29/20 07:53 99.0 F 64 19 167/79 97 09/29/20 03:56 98.0 F 79 18 167/78 96 09/29/20 00:00 84 09/28/20 23:51 98.5 F 92 H 18 146/73 95 09/28/20 19:27 98.4 F 89 20 160/61 98 09/28/20 16:44 98.0 F 77 18 161/71 95 09/28/20 16:18 71 09/28/20 16:03 65 - Physical Examination General: No Apparent Distress HEENT: Positive: PERRL Neck: Positive: trachea midline Cardiac: Positive: Reg Rate and Rhythm Lungs: Positive: Decreased Breath Sounds Neuro: Positive: Grossly Intact Abdomen: Positive: Soft Skin: Positive: Clear Musculoskeletal: Pain in Joint (right knee and ankle) Extremities: Absent: edema
--- NOTE | 2020-09-29 12:56 | Nuclear Medicine Report ---
APPROVED REPORT Exam: Nuclear Stress Test Indication: Chest pain BMI: 0 Stress Test Details Stress Test: Pharmacologic stress testing performed using 0.4 mg of regadenoson per 5 mL given IV over 10 seconds. HR Resting HR: 71 bpm Max HR Achieved: 93 bpm Max Heart Rate (APMHR): 160 bpm Target HR (85% APMHR): 136 bpm % of APMHR: 58 Recovery HR: 86 bpm HR response to stress: Normal HR response to stress BP Resting BP: 124/66 mmHg Max BP: 146/87 mmHg Recovery BP: 126/68 mmHg BP response to stress: Normal blood pressure response to stress. ECG Resting ECG: Sinus Rhythm, LVH with repolarization Stress ECG: Sinus Rhythm ST Change: None Arrhythmia: None Recovery ECG: Sinus Rhythm Recovery ST Change: None Recovery Arrhythmia: None Clinical Reason for Termination: Completed protocol Stress Symptoms: None Stress ECG Conclusion No chest pain and no ST changes with pharmacologic stress testing, myocardial perfusion images are pending for final test interpretation. NM EXAM: Myocardial Perfusion REST/STRESS Imaging Protocol: Rest Tc-99m/Stress Tc-99m 1 day Resting Data Rest SPECT myocardial perfusion imaging was performed in supine position 45 minutes following the intravenous injection of 10 mCi of Tc-99m Myoview. Time of rest injection: 0730 Pharmacologic Stress Pharmacologic stress test was performed by injecting Regadenoson 0.4 mg IV push followed by the intravenous injection of 28 mCi of Tc-99m Myoview. Time of stress injection: 1041 Gated Stress SPECT was performed 30 minutes after stress injection. The images were gated to evaluate regional wall motion and calculate left ventricular ejection fraction. Study Quality Study: excellent Lung Uptake: Normal Study Data TID = 1.18. Perfusion Wall Motion Gated study is suboptimal. Nuclear Conclusion ECG Findings: negative for ischemia Clinical Findings: negative for ischemia Nuclear Findings: negative for ischemia Risk Study: low A small fixed basal inferior defect appears consistent with diaphragmatic attenuation artifact. There is no reversible ischemia demonstrated on the study. Gated analysis study is suboptimal. Recommend clinical correlation and echocardiographic reassessment with of left ventricular systolic function. Conclusion No chest pain and no ST changes with pharmacologic stress testing, myocardial perfusion images are pending for final test interpretation.
[2020-09-29 13:53] LABS: Hematocrit 32.5 % (35.5-45.6); Hemoglobin 10.7 gm/dl (11.8-15.2); Mean Corpuscular HGB Conc 33 % (32-34); Mean Corpuscular Volume 92 fl (84-94); Platelet Count 159 K/mm3 (140-440); Red Blood Count 3.52 M/mm3 (3.65-5.03); Red Cell Distribution Width 15.3 % (13.2-15.2)
[2020-09-29 14:03] LABS: BUN/Creatinine Ratio 13; Blood Urea Nitrogen 13 mg/dL (9-20); Calcium 8.3 mg/dL (8.4-10.2); Hemolysis Index 4
--- NOTE | 2020-09-29 14:54 | Progress Note ---
Assessment and Plan Assessment and plan: 60-year-old -German male who presents with acute chest pain and possible gouty flare Acute coronary syndrome NSTEMI type II Rule out ACS Troponins elevated but downtrending EKG noted with incomplete left bundle branch block Cardiology consulted, no additional ischemic work-up needed Cardiac stress test without any ischemia Fever of unknown origin, rule out sepsis Possibly secondary to gout Blood cultures pending Patient on IV antibiotics Urine culture and urinalysis pending Acute gout flare X-rays of lower extremities noted Uric acid level elevated Pain did not resolve with colchicine, will start Solu-Medrol in addition to colchicine Patient to be discharged on allopurinol Hypertension Patient's blood pressure is better controlled Marijuana use Stressed abstinence Disposition: Continue to treat gouty flare, will have PT evaluate the patient. History Interval history: 09/28/2020: Patient seen and examined, complaining of lower extremity pain, states that he is having a gouty flare.: 09/29/2020: Patient seen and examined, returned from stress test, eating lunch, states that he continues to have a lot of pain in his lower extremities, states that he is not able to walk. Hospitalist Physical - Physical exam Narrative exam: General appearance: no acute distress, well-nourished EENT: PERRL, EOM intact, hearing intact, clear oral mucosa Neck: Present: supple, normal ROM Respiratory: bilateral CTA, negative: rales, rhonchi, wheezing Cardiovascular: Regular rate/rhythm, Normal S1 & S2. No gallop, rub Extremities: Tenderness in right knee, tenderness in first metatarsal of right foot, tenderness in metacarpals of right hand no ischemia, No edema, warm to touch Abdominal: soft, no tenderness, non-distended, normal bowel sounds Integumentary: Present: clear, warm, dry no wounds, no erythema noted Psychiatric: appropriate mood/affect, intact judgment & insight Neurologic: CNII-XII intact, moves all extremities, no sensory or motor abnormalities - Constitutional Vitals: Temp Pulse Resp BP Pulse Ox 99.0 F 68 19 169/85 97 09/29/20 07:53 09/29/20 08:22 09/29/20 07:53 09/29/20 08:22 09/29/20 07:53 HEART Score - HEART Score EKG: Non-specific Age: 45-65 Risk factors: > 3 risk factors or hx of atherosclerotic disease Troponin: Troponin T 0.028 ng/mL (0.00-0.029) 09/28/20 13:32 Troponin: 1-3x normal limit - Critical Actions Critical Actions: 4-6 pts:12-16.6% risk of adverse cardiac event. Should be admitted Results - Labs CBC & Chem 7: 09/29/20 13:13 09/29/20 13:13 Labs: Laboratory Last Values WBC 15.0 K/mm3 (4.5-11.0) H 09/29/20 13:13 RBC 3.52 M/mm3 (3.65-5.03) L 09/29/20 13:13 Hgb 10.7 gm/dl (11.8-15.2) L 09/29/20 13:13 Hct 32.5 % (35.5-45.6) L 09/29/20 13:13 MCV 92 fl (84-94) 09/29/20 13:13 MCH 30 pg (28-32) 09/29/20 13:13 MCHC 33 % (32-34) 09/29/20 13:13 RDW 15.3 % (13.2-15.2) H 09/29/20 13:13 Plt Count 159 K/mm3 (140-440) 09/29/20 13:13 Lymph % (Auto) 10.8 % (13.4-35.0) L 09/28/20 05:53 [place] % (Auto) 11.5 % (0.0-7.3) H 09/28/20 05:53 Eos % (Auto) 0.0 % (0.0-4.3) 09/28/20 05:53 Baso % (Auto) 0.2 % (0.0-1.8) 09/28/20 05:53 Lymph # (Auto) 1.6 K/mm3 (1.2-5.4) 09/28/20 05:53 [place] # (Auto) 1.7 K/mm3 (0.0-0.8) H 09/28/20 05:53 Eos # (Auto) 0.0 K/mm3 (0.0-0.4) 09/28/20 05:53 Baso # (Auto) 0.0 K/mm3 (0.0-0.1) 09/28/20 05:53 Seg Neutrophils % 77.5 % (40.0-70.0) H 09/28/20 05:53 Seg Neutrophils # 11.7 K/mm3 (1.8-7.7) H 09/28/20 05:53 PT 15.1 Sec. (12.2-14.9) H 09/28/20 02:01 INR 1.13 (0.87-1.13) 09/28/20 02:01 APTT 29.4 Sec. (24.2-36.6) 09/28/20 02:01 D-Dimer 1920 ng/mlDDU (0-234) H 09/28/20 02:00 Heparin Anti-Xa Level < 0.10 U.I./ml (0.3-0.7) L 09/28/20 13:32 Sodium 133 mmol/L (137-145) L 09/29/20 13:13 Potassium 3.8 mmol/L (3.6-5.0) 09/29/20 13:13 Chloride 98.1 mmol/L (98-107) 09/29/20 13:13 Carbon Dioxide 23 mmol/L (22-30) 09/29/20 13:13 Anion Gap 16 mmol/L 09/29/20 13:13 BUN 13 mg/dL (9-20) 09/29/20 13:13 Creatinine 1.0 mg/dL (0.8-1.3) 09/29/20 13:13 Estimated GFR > 60 ml/min 09/29/20 13:13 BUN/Creatinine Ratio 13 % 09/29/20 13:13 Glucose 109 mg/dL (75-100) H 09/29/20 13:13 Lactic Acid 1.20 mmol/L (0.7-2.0) 09/28/20 04:43 Uric Acid 8.2 mg/dL (3.5-7.6) H 09/28/20 13:32 Calcium 8.3 mg/dL (8.4-10.2) L 09/29/20 13:13 Magnesium 1.90 mg/dL (1.7-2.3) 09/28/20 02:01 Total Bilirubin 1.10 mg/dL (0.1-1.2) 09/28/20 00:34 AST 14 units/L (5-40) 09/28/20 00:34 ALT 10 units/L (7-56) 09/28/20 00:34 Alkaline Phosphatase 89 units/L (35-129) 09/28/20 00:34 Total Creatine Kinase 100 units/L (55-170) 09/28/20 02:01 Troponin T 0.028 ng/mL (0.00-0.029) 09/28/20 13:32 Total Protein 7.6 g/dL (6.3-8.2) 09/28/20 00:34 Albumin 3.9 g/dL (3.9-5) 09/28/20 00:34 Albumin/Globulin Ratio 1.1 % 09/28/20 00:34 Triglycerides 79 mg/dL (2-149) 09/28/20 00:34 Cholesterol 165 mg/dL (50-199) 09/28/20 00:34 LDL Cholesterol Direct 101 mg/dL (50-130) 09/28/20 00:34 HDL Cholesterol 60 mg/dL (40-59) H 09/28/20 00:34 Cholesterol/HDL Ratio 2.75 % 09/28/20 00:34 Microbiology: Microbiology 09/28/20 04:43 Peripheral/Venous Blood Culture - Preliminary NO GROWTH AFTER 24 HOURS 09/28/20 05:40 Peripheral/Venous Blood Culture - Preliminary NO GROWTH AFTER 24 HOURS Escobar/IV: Voiding Method Urinal Active Medications - Current Medications Current Medications: Generic Name Dose Route Start Last Admin Trade Name Freq PRN Reason Stop Dose Admin Acetaminophen 650 mg 09/28/20 05:12 Acetaminophen 325 Mg Tab PO Q6H PRN Pain, Mild (1-3) Aspirin 325 mg 09/29/20 10:00 09/29/20 12:12 Aspirin Ec 325 Mg Tab PO 325 mg QDAY AYALA Administration Atorvastatin Calcium 40 mg 09/28/20 22:00 09/28/20 21:08 Atorvastatin 40 Mg Tab PO 40 mg QHS AYALA Administration Colchicine 0.6 mg 09/29/20 10:00 09/29/20 12:11 Colchicine 0.6 Mg Tab PO 0.6 mg QDAY AYALA Administration Heparin Sodium (Porcine) 5,000 unit 09/28/20 22:00 09/29/20 12:12 Heparin 5,000 Unit/1 Ml Vial SUB-Q 5,000 unit Q12HR AYALA Administration Hydralazine HCl 10 mg 09/28/20 05:16 09/29/20 08:22 Hydralazine 20 Mg/1 Ml Inj IV 10 mg Q6H PRN Administration htn Sodium Chloride 1,000 mls @ 100 mls/hr 09/28/20 05:15 09/28/20 11:16 Nacl 0.9% 1000 Ml IV 100 mls/hr DIRECT AYALA Administration Ceftriaxone Sodium 1 gm in 50 mls @ 100 mls/hr 09/28/20 09:00 09/29/20 12:14 Rocephin/Ns 1 Gm/50 Ml IV 100 mls/hr Q24H AYALA Administration Protocol Methylprednisolone Sodium Succinate 125 mg 09/29/20 14:52 Methylprednisolone Sod Succinate 125 Mg/2 Ml Inj IV 09/29/20 14:53 ONCE ONE Morphine Sulfate 2 mg 09/28/20 05:12 09/29/20 03:59 Morphine 2 Mg/1 Ml Inj IV 2 mg Q5MIN PRN Administration Chest Pain Nitroglycerin 0.4 mg 09/28/20 05:12 Nitroglycerin 0.4 Mg Tab Subl SL Q5M PRN Chest Pain Sodium Chloride 10 ml 09/28/20 05:12 Sodium Chloride 0.9% 10 Ml Flush Syringe IV PRN PRN LINE FLUSH Tramadol HCl 50 mg 09/28/20 05:12 09/29/20 08:23 Tramadol 50 Mg Tab PO 50 mg Q6H PRN Administration Pain, Moderate (4-6)
[2020-09-29] MEDS ORDERED: methylPREDNISolone Sod Succinate 125 MG/2 ML INJ IV ONE (15:00)
[2020-09-30 05:20] LABS: Hematocrit 32.4 % (35.5-45.6); Hemoglobin 10.5 gm/dl (11.8-15.2)
[2020-09-30 08:30] VITALS: BP 162/82
--- NOTE | 2020-09-30 09:21 | Progress Note ---
Assessment and Plan Chest pain, atypical CT angiogram of the chest was negative for pulmonary embolism. 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 Normal LVEF 60-65%. Primary team for management of severe gouty arthritis of the right ankle. Otherwise, conservative cardiac management. Subjective Date of service: 09/30/20 Interval history: Patient denies chest pain and SOB. Objective Vital Signs Temp Pulse Resp BP BP Pulse Ox 09/30/20 07:58 98.4 F 59 L 19 162/82 97 09/30/20 04:00 98.4 F 68 20 137/77 09/30/20 00:00 98.9 F 74 20 154/82 09/29/20 20:00 99.8 F H 83 16 150/66 09/29/20 16:08 98.6 F 71 19 152/80 99 09/29/20 16:00 74 09/29/20 13:07 16 155/87 - Physical Examination General: No Apparent Distress HEENT: Positive: PERRL Neck: Positive: trachea midline Cardiac: Positive: Reg Rate and Rhythm Lungs: Positive: Normal Breath Sounds Neuro: Positive: Grossly Intact Abdomen: Positive: Soft Musculoskeletal: Pain in Joint (right knee and ankle) - Labs and Meds CBC 09/29/20 09/30/20 Range/Units 13:13 04:49 WBC 15.0 H (4.5-11.0) K/mm3 RBC 3.52 L (3.65-5.03) M/mm3 Hgb 10.7 L 10.5 L (11.8-15.2) gm/dl Hct 32.5 L 32.4 L (35.5-45.6) % Plt Count 159 174 (140-440) K/mm3 Comprehensive Metabolic Panel 09/29/20 Range/Units 13:13 Sodium 133 L (137-145) mmol/L Potassium 3.8 (3.6-5.0) mmol/L Chloride 98.1 (98-107) mmol/L Carbon Dioxide 23 (22-30) mmol/L BUN 13 (9-20) mg/dL Creatinine 1.0 (0.8-1.3) mg/dL Glucose 109 H (75-100) mg/dL Calcium 8.3 L (8.4-10.2) mg/dL
[2020-09-30] MEDS ORDERED: methylPREDNISolone Sod Succinate 40 MG/1 ML INJ IV SCH (10:00)
[2020-09-30] MEDS: ASPIRIN EC 325 MG TAB PO SCH (10:52)
[2020-09-30] MEDS: cefTRIAXone/NS 1 GM/50 ML 1 GM/50 ML BAG IV SCH (10:52)
[2020-09-30] MEDS: COLCHICINE 0.6 MG TAB PO SCH (10:52)
[2020-09-30] MEDS: HEPARIN 5,000 UNIT/1 ML VIAL SUB-Q SCH (10:53)
--- NOTE | 2020-09-30 11:12 | Discharge Summary ---
Providers - Providers Date of Admission: 09/29/20 16:31 Date of discharge: 09/30/20 Attending physician: GINGER ROSAS MD 09/28/20 Consult to Cardiac Rehabilitation [CONS] Routine Reason For Exam: Phase I 09/28/20 05:12 Consult to Cardiology [CONS] Routine Consulting Provider: DEVIN WADE Reason For Exam: Chest pain 09/29/20 14:57 Physical Therapy Evaluation and Treat [CONS] Routine Comment: Reason For Exam: ataxia 2/2 to gout flare 09/29/20 15:09 Physical Therapy Evaluation and Treat [CONS] Urgent Comment: pt. has abnormal gait Reason For Exam: Pt to eval and treat for weakness Primary care physician: BI ARCHITECT Hospitalization Condition: Good Hospital course: 60-year-old -[place] male who presents with acute chest pain and possible gouty flare Acute coronary syndrome NSTEMI type II Rule out ACS Troponins elevated but downtrending EKG noted with incomplete left bundle branch block Cardiology consulted, no additional ischemic work-up needed Cardiac stress test without any ischemia Fever of unknown origin, rule out sepsis Possibly secondary to gout Blood cultures negative today Asymptomatic, DC all antibiotics Acute gout flare X-rays of lower extremities noted Uric acid level elevated Continue Medrol Dosepak at home Continue colchicine and start allopurinol 1 flare has resolved Hypertension Patient's blood pressure is better controlled Start amlodipine 5 mg daily Marijuana use Stressed abstinence History Interval history: 09/28/2020: Patient seen and examined, complaining of lower extremity pain, states that he is having a gouty flare.: 09/29/2020: Patient seen and examined, returned from stress test, eating lunch, states that he continues to have a lot of pain in his lower extremities, states that he is not able to walk. 09/30/2020: Patient is able to walk, stress test is negative, patient comfortable going home with steroids. Disposition: DC-30 STILL A PATIENT Final Discharge Diagnosis (Prints w/discharge instructions): NSTEMI type II. Acute gout flare. Hypertension. Marijuana abuse Core Measure Documentation - Palliative Care Palliative Care/ Comfort Measures: Not Applicable - Core Measures Any of the following diagnoses?: none Exam - Physical Exam Narrative exam: General appearance: no acute distress, well-nourished EENT: PERRL, EOM intact, hearing intact, clear oral mucosa Neck: Present: supple, normal ROM Respiratory: bilateral CTA, negative: rales, rhonchi, wheezing Cardiovascular: Regular rate/rhythm, Normal S1 & S2. No gallop, rub Extremities: Right knee with minimal tenderness, left fourth metatarsal with minimal tenderness, right foot first metatarsal with minimal tenderness Abdominal: soft, no tenderness, non-distended, normal bowel sounds Integumentary: Present: clear, warm, dry no wounds, no erythema noted Psychiatric: appropriate mood/affect, intact judgment & insight Neurologic: CNII-XII intact, moves all extremities, no sensory or motor abnormalities - Constitutional Vitals: Temp Pulse Resp BP Pulse Ox 98.4 F 59 L 19 162/82 97 09/30/20 07:58 09/30/20 07:58 09/30/20 07:58 09/30/20 07:58 09/30/20 07:58 Plan Activity: no restrictions Diet: low protein Plan of Treatment: Please take the steroids as directed. When your gouty flare has discontinued, please start taking allopurinol Please start taking the amlodipine for your elevated blood pressure. Please follow-up with your primary care physician. Follow up with: PRIMARY CARE, [Primary Care Provider] - 3-5 Days Prescriptions: AtorvaSTATin [Lipitor] 40 mg PO QHS #90 tablet amLODIPine 5 mg PO DAILY #90 tab Colchicine [Colcrys] 0.6 mg PO QDAY #30 tablet methylPREDNISolone [Medrol 4MG DOSEPAK (21 tabs)] 4 mg PO DAILY #1 tab.ds.pk allopurinoL [Zyloprim] 100 mg PO QDAY #90 tablet
== END 2020-09-30 21:52 | disposition home or self-care (01) | DRG 553 ==
LOC: ED 22:30 → 4A 09-28 02:01 → OBSVTOIN 09-29 16:31
PROVIDERS: ADMIT Hospitalist; ATTEND Family Medicine
DX: M10.071 Idiopathic gout, right ankle and foot (principal); I21.A1 Myocardial infarction type 2; I25.2 Old myocardial infarction; M19.071 Primary osteoarthritis, right ankle and foot; M17.11 Unilateral primary osteoarthritis, right knee; F12.10 Cannabis abuse, uncomplicated; I12.9 Hypertensive chronic kidney disease with stage 1 through stage 4 chronic kidney disease, or unspecified chronic kidney disease; N18.9 Chronic kidney disease, unspecified
CPT/HCPCS: 36415; 71045; 71275; 78452; 80048; 80053; 80061; 82140; 82550; 82962; 83735; 84484; 84550; 85014; 85018; 85025; 85027; 85049; 85379; 85520; 85610; 85730; 87040; 93005; 93017; 93306; 96365; 96367; 96368; 96375; 96376; G0378; A9502; J0360; J0690; J0696; J1170; J1644; J2270; J2785; J2920; J2930; J7030; J7040; Q9967